=== PATIENT | male | born 1975 | race Caucasian/White ===

== ENCOUNTER 2018-06-15 16:29 | Emergency (ER) | payer OTHER ==
[~2018-06-15 16:29] MED LIST: Iopamidol 370 76% 100 ML VIAL ONE
[2018-06-15 17:44] LABS: #Eosinphils 0.1 thou/uL (0.0-0.7); #Lymphocytes 1.2 thou/uL (1.20-3.40); #Monocytes 0.5 thou/uL (0.11-0.59); %Basophils 0.5 % (0.0-1.0); %Eosinophils 1.5 % (0.0-10.0); %Lymphocytes 20.6 % (21.0-51.0); %Monocytes 8.9 % (0.0-10.0); %Neutrophils 68.5 % (42.0-75.0); Hemoglobin 12.9 g/dL (14.0-18.0); Mean Corpuscular HGB CONC 32.8 g/dL (32.0-36.0); Mean Corpuscular Hemoglobin 29.5 pg (27.0-31.0); Mean Corpuscular Volume 89.9 fL (78.0-98.0); Mean Platelet Volume 6.4 fL (7.4-10.4); Platelet Count 205 thou/uL (130-400); RBC Distribution Width 11.5 % (11.5-14.5); Red Blood Cell (RBC) Count 4.38 mill/uL (4.70-6.10); White Blood Cell (WBC) Count 5.8 thou/uL (4.8-10.8)
[2018-06-15 17:58] LABS: ALT (SGPT) 20 U/L (8-55); AST (SGOT) 15 U/L (5-34); Alkaline Phosphatase 87 U/L (40-150); Anion Gap 14 mmol/L (10-20); BUN (Urea Nitrogen) 7 mg/dL (8.9-20.6); Bilirubin, Total 0.5 mg/dL (0.2-1.2); Calc. Creatinine Clearance 0 mL/min (70-130); Calcium 9.1 mg/dL (7.8-10.44); Carbon Dioxide 30 mmol/L (22-29); Chloride 104 mmol/L (98-107); Estimated GFR-MDRD Greater than 90; Globulin 3.1 g/dL (2.4-3.5); Glucose 97 mg/dL (70-105); Potassium 3.6 mmol/L (3.5-5.1); Protein, Total 7.1 g/dL (6.0-8.3); Sodium 144 mmol/L (136-145)
[2018-06-15] MEDS ORDERED: Dexamethasone 4 mg/ml Vial ONE (18:14)
[2018-06-15] MEDS ORDERED: Clindamycin 150 MG CAP ONE (19:01)
--- NOTE | 2018-06-15 19:31 | CT ---
CT NECK SOFT TISSUE WITH CONTRAST: 06/15/18 HISTORY: Sore throat. Unable to stop salivating. COMPARISON: None. FINDINGS: There is abnormal enhancement of both palatine tonsils. There is a small right palatine intratonsilla r abscess measuring 7 mm in transverse x 9 mm in AP dimension x craniocaudad length of 8 mm. No retro pharyngeal collection of fluid. No extension of fluid into the mediastinum. The prevertebral soft tis sues are normal. Reactive bilateral axillary lymph nodes. The nasopharyngeal tonsils are not significantly enlarged. Lingual tonsils are not significantly enla rged. IMPRESSION: Enlarged palatine tonsils with right sided small intratonsillar abscess as described. POS: [facility]
== END 2018-06-15 19:14 | disposition home or self-care (01) ==
LOC: MADERS 16:29
DX: J02.9 Acute pharyngitis, unspecified (principal)
CPT/HCPCS: 36415; 70491; 80053; 85025; 87081; 87430; 87804; 96374; J1100; Q9967